=== PATIENT | female | born 1955 | race Asian ===

== ENCOUNTER 2017-04-18 14:22 | Emergency (ER) | payer OTHER ==
[~2017-04-18] VITALS: Ht 157.5 cm; Wt 66.5 kg
[2017-04-18 14:39] VITALS: Ht 157.5 cm; Wt 66.5 kg
[2017-04-18 16:28] LABS: BASOPHILS % 0.4 % (0.0-2.0); EOSINOPHILS # 0.6 10^3/ul (0.0-0.5); EOSINOPHILS % 7.6 % (0.0-7.0); HEMOGLOBIN 12.9 g/dl (12.0-16.0); LYMPHOCYTES # 2.9 10^3/ul (0.8-2.9); LYMPHOCYTES % 40.4 % (15.0-51.0); MEAN CORPUSCULAR HEMOGLOBIN 30.5 pg (29.0-33.0); MEAN CORPUSCULAR HGB CONC 33.1 g/dl (32.0-37.0); MEAN CORPUSCULAR VOLUME 92.2 fl (82.0-101.0); MEAN PLATELET VOLUME 10.1 fl (7.4-10.4); MONOCYTE # 0.4 10^3/ul (0.3-0.9); MONOCYTES % 5.7 % (0.0-11.0); NEUTROPHIL # 3.3 10^3/ul (1.6-7.5); NEUTROPHILS % 45.8 % (39.0-77.0); PLATELET COUNT 353 10^3/UL (140-415); RED BLOOD COUNT 4.23 10^6/ul (4.20-5.40); RED CELL DISTRIBUTION WIDTH 13.3 % (11.5-14.5); WHITE BLOOD COUNT 7.2 10^3/ul (4.8-10.8)
[2017-04-18 16:44] LABS: INR 0.95; PROTIME 12.7 Sec (12.2-14.2)
[2017-04-18 16:48] LABS: CALCIUM 9.3 mg/dl (8.4-10.2); CREATININE 0.61 mg/dl (0.44-1.00); POTASSIUM 4.1 mmol/L (3.5-5.1)
--- NOTE | 2017-04-18 17:19 | RADRPT ---
PROCEDURE: CT brain without contrast CLINICAL INDICATION: Headaches TECHNIQUE: CT of the brain without contrast performed on a multidetector CT scanner, with multiplan ar reformats. One or more of the following dose reduction techniques were used: Automated exposure control, adjustment in mA and / or kV according to patient size, use of iterative reconstructive christian hnique. CTDIvol = 44 mGy; DLP = 630 mGy-cm. COMPARISON: None available FINDINGS: No acute intracranial hemorrhage is identified. No extra-axial fluid collection is seen. There is no mass effect. No midline shift is identified. The ventricles and sulci are mildly enlarged compatible with delete the volume loss. There are minimal areas of hypodensity in the periventricular - deep white matter which are nonspeci fic but suggestive of chronic small vessel ischemic changes. Mccarthy-white differentiation is preserve d. Atherosclerotic calcifications of the intracranial internal carotid arteries are noted. Osseous structures are unremarkable. There is severe left sphenoid sinus mucosal thickening. IMPRESSION: 1. No evidence of acute intracranial pathology. 2. Mild volume loss, with minimal chronic small vessel ischemic changes. 3. Paranasal sinus disease described above. RPTAT: VV .Domo Peck MD, MD Date Time Electronically viewed and signed by .Domo Peck MD, MD on 04/18/2017 17:19 .O/
[2017-04-18] MEDS ORDERED: HYD25 PO (17:22)
--- NOTE | 2017-04-18 18:45 | ERD ---
ER Documentation Chief Complaint Date/Time DATE: 04/18/17 TIME: 18:36 Chief Complaint Pt with symptomatic hypertension X 2 weeks. HPI This is a 61-year-old female presents to the ER stating she has been having high blood pressure readings over the last 2 weeks. This morning her blood pressure was 209/101 and today it is elevated upon triage. Patient states that she has developed a headache that is located all over her head is throbbing in quality and sometimes she feels as if her head is numb and tingly. She denies any upper or lower extremity weakness or tingling. She denies any chest pain or shortness of breath. Patient denies any vision loss or vision changes. ROS 12 point review of systems was done, all negative except per HPI. Medications Home Meds Active Scripts Hydrochlorothiazide* (Hydrochlorothiazide*) 25 Mg Tab, 25 MG PO DAILY, #30 TAB Prov:AUDREY FOWLER 04/18/17 Allergies Allergies: Coded Allergies: No Known Allergy (Unverified , 04/18/17) PMhx/Soc Medical and Surgical Hx: pt denies Surgical Hx Hx Cardiac Disorders: Yes (cholesterol, HTN) Hx Alcohol Use: No Hx Substance Use: No Hx Tobacco Use: No Smoking Status: Never smoker Physical Exam Vitals Vital Signs Date Time Temp Pulse Resp B/P Pulse Ox O2 Delivery O2 Flow Rate FiO2 04/18/17 14:39 98.0 73 18 171/77 99 Physical Exam GENERAL: The patient is well developed and appropriate for usual state of health , in no apparent distress. HEENT: Atraumatic. Conjunctivae are pink. Pupils equal, round, and reactive to light. Extraocular muscles are grossly intact. Bilateral tympanic membranes are clear with no evidence of erythema, bulging or perforation. No sinus tenderness. NECK: C-spine is soft and supple. There is no cervical lymphadenopathy. CHEST: Clear to auscultation bilaterally. There are no rales, wheezes or rhonchi. HEART: Regular rate and rhythm. No murmurs, clicks, rubs or gallops. EXTREMITIES: Equal pulses bilaterally. There is no peripheral clubbing, cyanosis or edema. No focal swelling or erythema. Full range of motion. Grossly neurovascularly intact. NEURO: Alert and oriented. Cranial nerves II through XII are intact. Motor strength in all 4 extremities with 5/5 strength. Sensation grossly intact. Normal speech and gait. Negative Rhomberg. +2 DTRs. SKIN: There is no apparent rash or petechia. The skin is warm and dry. Result Diagram: 04/18/17 1614 04/18/17 1614 Results 24 hrs Laboratory Tests Test 04/18/17 16:14 White Blood Count 7.210^3/ul Red Blood Count 4.2310^6/ul Hemoglobin 12.9g/dl Hematocrit 39.0% Mean Corpuscular Volume 92.2fl Mean Corpuscular Hemoglobin 30.5pg Mean Corpuscular Hemoglobin Concent 33.1g/dl Red Cell Distribution Width 13.3% Platelet Count 66070^3/UL Mean Platelet Volume 10.1fl Neutrophils % 45.8% Lymphocytes % 40.4% Monocytes % 5.7% Eosinophils % 7.6% Basophils % 0.4% Nucleated Red Blood Cells % 0.0/100WBC Neutrophils # 3.310^3/ul Lymphocytes # 2.910^3/ul Monocytes # 0.410^3/ul Eosinophils # 0.610^3/ul Basophils # 0.010^3/ul Nucleated Red Blood Cells # 0.010^3/ul Prothrombin Time 12.7Sec Prothrombin Time Ratio 1.0 INR International Normalized Ratio 0.95 Activated Partial Thromboplast Time 29.0Sec Sodium Level 143mmol/L Potassium Level 4.1mmol/L Chloride Level 100mmol/L Carbon Dioxide Level 27mmol/L Anion Gap 20 Blood Urea Nitrogen 12mg/dl Creatinine 0.61mg/dl Glucose Level 97mg/dl Calcium Level 9.3mg/dl Procedures/MDM Differential Diagnosis includes but is not limited to; tension headache, migraine headache, cluster headache, sinus headache, nonspecific febrile headache, trigeminal neurologia, subdural hematoma, subarachnoid bleeding, meningitis, encephalitis. Patient is neurologically intact with no focal neurological deficits. This time patient does not have an acute intracranial emergency. An EKG was done [address] elevation no T-wave inversion no evidence of left ventricular hypertrophy. Patient blood pressure was elevated to 171/77 however she is on any hypertensive emergency or urgency. Patient will be started on chlorothiazide. She is to follow-up with her primary care doctor within 1-2 days return to ER sooner if symptoms worsen. My medical decision making shared with the patient she understands and agrees with plan. Departure Diagnosis: Primary Impression: Elevated blood pressure reading Condition: Stable Patient Instructions: Hypertension, New (Begin Treatment) Additional Instructions: Call your primary care doctor TOMORROW for an appointment during the next 1-2 days.See the doctor sooner or return here if your condition worsens before your appointment time. AUDREY FOWLER Apr 18, 2017 18:45
== END 2017-04-18 17:28 | disposition home or self-care (01) ==
LOC: FTE 14:22
DX: I10 Essential (primary) hypertension (principal); R51 Headache
CPT/HCPCS: 36415; 70450; 80048; 85025; 85610; 85730; 93005; Z7502